=== PATIENT | female | born 1935 | race Caucasian/White ===

== ENCOUNTER 2016-10-07 16:55 | Inpatient (IN) | payer MEDICARE, BC ==
--- NOTE | 2016-10-07 17:23 | Emergency Department Record ---
History of Present Illness - General Chief complaint: Weakness Stated complaint: WEAK Time Seen by Provider: 10/07/16 17:15 Source: Patient, Family, EMS Mode of Arrival: EMS Limitations: No limitations - History of Present Illness Initial comments: 81 yo female presents with weakness for about two weeks since the of her sister. She has been very fatigued, sleepy, less appetite, generally feeling slowed and tired. No headaches. She did get lightheaded today with standing. No vomiting or diarrhea. No chest pain or shortness of breath. No abdominal pain. No swelling or edema. No rash. No speech changes. No focal weakness. No new medications. She did see her doctor recently and was diagnosed with vitamin D deficiency. 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 MD Complaint: Generalized weakness Onset/Timin -: Hour(s) Location: Generalized Consistency: Constant Improves with: None Worsens with: Exertion Context: Depression (sister 2 weeks ago) Associated Symptoms: Denies other symptoms - Jolene Coma Scale Eye Response: (4) Open spontaneously Motor Response: (6) Obeys commands Verbal Response: (5) Oriented Roberts Total: 15 - Related Data Home Medications Medication Instructions Recorded Confirmed Last Taken Atenolol [Tenormin] 25 mg PO DAILY 10/07/16 10/07/16 10/06/16 Atenolol [Tenormin] 50 mg PO DAILY 10/07/16 10/07/16 10/06/16 Digoxin [Lanoxin] 125 mcg PO DAILY 10/07/16 10/07/16 10/06/16 Ergocalciferol (Vitamin D2) 50,000 unit PO WEEKLY 10/07/16 10/07/16 Unknown [Vitamin D2] Furosemide [Lasix] 20 mg PO DAILY 10/07/16 10/07/16 10/06/16 Potassium Chloride [K-Tab ER] 10 meq PO DAILY 10/07/16 10/07/16 10/06/16 Pravastatin Sodium [Pravachol] 10 mg PO DAILY 10/07/16 10/07/16 10/06/16 Allergies Allergy/AdvReac Type Severity Reaction Status Date / Time cephalexin monohydrate Allergy HIVES Verified 10/07/16 17:16 [From Retrace] Travel Screening - Travel/Exposure Within Last 30 Days Have you traveled within the last 30 days?: No - Travel/Exposure Within Last Year Have you traveled outside the [place] in the last year?: No - Additonal Travel Details Have you been exposed to anyone with a communicable illness?: No - Travel Symptoms Symptom Screening: None Review of Systems Constitutional: Reports: Malaise, Weakness. Denies: Chills, Fever, Night sweats , Weight change Eyes: Denies: Eye discharge, Eye pain, Photophobia, Vision change ENT: Denies: Congestion, Epistaxis, Throat pain Respiratory: Denies: Cough, Dyspnea, Hemoptysis, Wheezes Cardiovascular: Denies: Arrhythmia, Chest pain, Dyspnea on exertion, Edema, Palpitations, Syncope Endocrine: Reports: Fatigue. Denies: Heat or cold intolerance, Polydipsia, Polyuria Gastrointestinal: Reports: As per HPI. Denies: Abdominal pain, Diarrhea, Nausea , Vomiting Genitourinary: Denies: Dysuria, Frequency, Hematuria, Urgency Musculoskeletal: Denies: Arthralgia, Back pain, Joint swelling, Myalgia, Neck pain Skin: Denies: Bruising, Change in color, Rash Neurological: Reports: Weakness. Denies: Abnormal gait, Confusion, Headache, Numbness, Paresthesias, Tingling, Tremors, Vertigo Psychiatric: Reports: Depression. Denies: Anxiety Hematological/Lymphatic: Denies: Blood Clots, Easy bleeding, Easy bruising, Swollen glands Past Medical History - SOCIAL HISTORY Smoking Status: Never smoker Alcohol Use: None Drug Use: None - RESPIRATORY Hx Respiratory Disorders: No - CARDIOVASCULAR Hx Cardio Disorders: No - NEURO Hx Neuro Disorders: No - GI Hx GI Disorders: No - Hx Genitourinary Disorders: No - ENDOCRINE Hx Endocrine Disorders: No - MUSCULOSKELETAL Hx Musculoskeletal Disorders: No - PSYCH Hx Psych Problems: No - HEMATOLOGY/ONCOLOGY Hx Hematology/Oncology Disorders: Yes Hx Cancer: Yes (colon) Family Medical History Any Significant Family History?: No Physical Exam - General General Appearance: Alert, Oriented x3, Cooperative, No acute distress Limitations: No limitations, Other (the patient is the primary historian) - Head Head exam: Atraumatic, Normal inspection - Eye Eye exam: Normal appearance, PERRL, EOMI. negative: Conjunctival injection, Periorbital swelling - ENT ENT exam: Normal exam, Mucous membranes moist, Normal external ear exam, Normal orophraynx Ear exam: Normal external inspection. negative: External canal tenderness Nasal Exam: Normal inspection. negative: Discharge, Sinus tenderness Mouth exam: Normal external inspection, Tongue normal Teeth exam: Normal inspection. negative: Dental caries Throat exam: Normal inspection. negative: Tonsillar erythema, Tonsillar exudate - Neck Neck exam: Normal inspection, Full ROM. negative: Lymphadenopathy, Tenderness, Thyromegaly - Respiratory Respiratory exam: Normal lung sounds bilaterally. negative: Respiratory distress - Cardiovascular Cardiovascular Exam: Regular rate, Normal rhythm, Normal heart sounds Peripheral Pulses: 2+: Radial (R), Radial (L) - GI/Abdominal GI/Abdominal exam: Soft - Rectal Rectal exam: Deferred - exam: Deferred - Extremities Extremities exam: Normal inspection, Full ROM, Normal capillary refill. negative: Tenderness - Back Back exam: Reports: Normal inspection, Full ROM. Denies: Muscle spasm, Rash noted, Tenderness - Neurological Neurological exam: Alert, CN II-XII intact, Normal gait, Oriented X3. negative : Altered, Motor sensory deficit - Psychiatric Psychiatric exam: Normal affect, Normal mood. negative: Agitated, Anxious, Depressed - Skin Skin exam: Dry, Intact, Normal color, Warm Course Vital Signs 10/07/16 17:08 Temperature 97.7 F Pulse Rate [ 95 H Pulse Ox Probe] Respiratory 18 Rate Blood Pressure 124/64 [Left Arm] Pulse Ox 98 - Reevaluation(s) Reevaluation #1: No acute findings on the HCT scan CBC is unremarkable. No acute changes EKG NSR, rate 87, intervals normal, axis leftward, ST no acute changes 10/07/16 18:16 Reevaluation #2: BUn and CR elevated at 31 and 1.3 likely dehydration as she has not been eating or drinking normally since her sisters . 10/07/16 18:31 Medical Decision Making - Lab Data Result diagrams: 10/07/16 17:30 10/08/16 06:45 Disposition Clinical Impression: Dehydration, UTI (urinary tract infection), Generalized weakness Disposition: Still a Patient at [facility] Condition: (1) Good
[2016-10-07] MEDS ORDERED: 0.9 % SODIUM CHLORIDE 1,000 ML BAG IV ONE ×2 (17:24→18:32)
[2016-10-07 17:36] LABS: BASO % 0.1 % (0-6); EOS % 0.6 % (0-6); GRAN % 73.3 % (47-80); HEMATOCRIT 38.2 % (35.0-47.0); HEMOGLOBIN 12.1 gm/dl (11.6-16.0); LYMPH % 12.9 % (16-45); MEAN CELL VOLUME 94.6 fl (81-97); MEAN CORPUSCULAR HGB CONC 31.7 g/dl (32-36); MEAN PLATELET VOLUME 8.9 fl (7.4-10.4); MONO % 13.1 % (0-9); PLATELET COUNT 374 K/uL (130-400); RED BLOOD COUNT 4.04 M/uL (3.80-5.40); RED CELL DISTRIBUTION WIDTH 13.8 % (11.5-14.5)
[2016-10-07 18:22] LABS: CREATININE 1.3 mg/dL (0.52-1.04)
[2016-10-07 18:23] LABS: ALBUMIN 3.8 gm/dL (3.5-5.0); ANION GAP 14.9 (7-16); BILIRUBIN,TOTAL 1.02 mg/dL (0.2-1.3); CARBON DIOXIDE 24.1 mmol/L (22-30); TOTAL PROTEIN 7.8 gm/dL (6.3-8.2)
[2016-10-07 18:58] LABS: URINE APPEARANCE CLOUDY; URINE BILIRUBIN NEGATIVE (NEGATIVE); URINE BLOOD LARGE (NEGATIVE); URINE COLOR YELLOW; URINE GLUCOSE (UA) NEGATIVE (NEGATIVE); URINE KETONE NEGATIVE (NEGATIVE); URINE LEUKOCYTE ESTERASE LARGE (NEGATIVE); URINE NITRITE NEGATIVE (NEGATIVE)
[2016-10-07 19:04] LABS: URINE BACTERIA 1+; URINE EPITHELIAL CELLS 0 - 2 (FEW); URINE RBC >50 (NONE SEEN); URINE WBC >50 (0-2/hpf)
[2016-10-07] MEDS ORDERED: CEFTRIAXONE SODIUM 1 GM in 0.9 % SODIUM CHLORIDE 100ML 100 ML IVPB ONE (19:21)
[2016-10-07 19:55] LABS: THYROID STIMULATING HORMONE 4.4 uIU/ml (0.465-4.68)
--- NOTE | 2016-10-07 21:01 | Emergency Department Record ---
History of Present Illness - General Chief complaint: Weakness Stated complaint: WEAK Time Seen by Provider: 10/07/16 17:15 Source: Patient, Family, EMS Mode of Arrival: EMS Limitations: No limitations, Other (the patient is the primary historian) - History of Present Illness MD Complaint: Generalized weakness Onset/Timin -: Hour(s) Location: Generalized Consistency: Constant Improves with: None Worsens with: Exertion Context: Depression (sister 2 weeks ago) Associated Symptoms: Denies other symptoms - Jolene Coma Scale Eye Response: (4) Open spontaneously Motor Response: (6) Obeys commands Verbal Response: (5) Oriented Jolene Total: 15 - Related Data Home Medications Medication Instructions Recorded Confirmed Last Taken Atenolol [Tenormin] 25 mg PO DAILY 10/07/16 10/07/16 10/06/16 Atenolol [Tenormin] 50 mg PO DAILY 10/07/16 10/07/16 10/06/16 Digoxin [Lanoxin] 125 mcg PO DAILY 10/07/16 10/07/16 10/06/16 Ergocalciferol (Vitamin D2) 50,000 unit PO WEEKLY 10/07/16 10/07/16 Unknown [Vitamin D2] Furosemide [Lasix] 20 mg PO DAILY 10/07/16 10/07/16 10/06/16 Potassium Chloride [K-Tab ER] 10 meq PO DAILY 10/07/16 10/07/16 10/06/16 Pravastatin Sodium [Pravachol] 10 mg PO DAILY 10/07/16 10/07/16 10/06/16 Allergies Allergy/AdvReac Type Severity Reaction Status Date / Time cephalexin monohydrate Allergy HIVES Verified 10/07/16 17:16 [From Keflex] Travel Screening - Travel/Exposure Within Last 30 Days Have you traveled within the last 30 days?: No - Travel/Exposure Within Last Year Have you traveled outside the [place] in the last year?: No - Additonal Travel Details Have you been exposed to anyone with a communicable illness?: No - Travel Symptoms Symptom Screening: None Review of Systems Constitutional: Reports: Malaise, Weakness. Denies: Chills, Fever, Night sweats , Weight change Eyes: Denies: Eye discharge, Eye pain, Photophobia, Vision change ENT: Denies: Congestion, Epistaxis, Throat pain Respiratory: Denies: Cough, Dyspnea, Hemoptysis, Wheezes Cardiovascular: Denies: Arrhythmia, Chest pain, Dyspnea on exertion, Edema, Palpitations, Syncope Endocrine: Reports: Fatigue. Denies: Heat or cold intolerance, Polydipsia, Polyuria Gastrointestinal: Reports: As per HPI. Denies: Abdominal pain, Diarrhea, Nausea , Vomiting Genitourinary: Denies: Dysuria, Frequency, Hematuria, Urgency Musculoskeletal: Denies: Arthralgia, Back pain, Joint swelling, Myalgia, Neck pain Skin: Denies: Bruising, Change in color, Rash Neurological: Reports: Weakness. Denies: Abnormal gait, Confusion, Headache, Numbness, Paresthesias, Tingling, Tremors, Vertigo Psychiatric: Reports: Depression. Denies: Anxiety Hematological/Lymphatic: Denies: Blood Clots, Easy bleeding, Easy bruising, Swollen glands Past Medical History - SOCIAL HISTORY Smoking Status: Never smoker Alcohol Use: None Drug Use: None - RESPIRATORY Hx Respiratory Disorders: No - CARDIOVASCULAR Hx Cardio Disorders: No - NEURO Hx Neuro Disorders: No - GI Hx GI Disorders: No - Hx Genitourinary Disorders: No - ENDOCRINE Hx Endocrine Disorders: No - MUSCULOSKELETAL Hx Musculoskeletal Disorders: No - PSYCH Hx Psych Problems: No - HEMATOLOGY/ONCOLOGY Hx Hematology/Oncology Disorders: Yes Hx Cancer: Yes (colon) Family Medical History Any Significant Family History?: No Physical Exam - General Limitations: No limitations, Other (the patient is the primary historian) Course Vital Signs 10/07/16 10/07/16 17:08 18:15 Temperature 97.7 F Pulse Rate [ 95 H 89 Pulse Ox Probe] Respiratory 18 16 Rate Blood Pressure 124/64 120/51 [Left Arm] Pulse Ox 98 98 - Reevaluation(s) Reevaluation #1: 10/07/16 20:58 UA reviewed and appears c/w UTI. Rocephin ordered and has infused, attempted ambulation trial and patient ambulated with assist to the bathroom from Room # 4. Patient and daughter however are not comfortable with the patient going home at this time, will admit for observation, IVFs, and antibiotics with consultation for PT/OT evaluation in the morning. Case was discussed with Admitting PA (Marilee), will accept admission at this time. Medical Decision Making - Lab Data Result diagrams: 10/07/16 17:30 10/07/16 17:30 Lab Results 10/07/16 10/07/16 10/07/16 Range/Units 17:30 17:30 17:30 WBC 9.0 (4.2-12.2) K/uL RBC 4.04 (3.80-5.40) M/uL Hgb 12.1 (11.6-16.0) gm/dl Hct 38.2 (35.0-47.0) % MCV 94.6 (81-97) fl MCH 30.0 (27-33) pg MCHC 31.7 L (32-36) g/dl RDW 13.8 (11.5-14.5) % Plt Count 374 (130-400) K/uL MPV 8.9 (7.4-10.4) fl Gran % 73.3 (47-80) % Lymphocytes % 12.9 L (16-45) % Monocytes % 13.1 H (0-9) % Eosinophils % 0.6 (0-6) % Basophils % 0.1 (0-6) % Sodium 135 L (136-145) mmol/L Potassium 3.9 (3.5-5.1) mmol/L Chloride 96 L (98-107) mmol/L Carbon Dioxide 24.1 (22-30) mmol/L Anion Gap 14.9 (7-16) BUN 31 H (7-17) mg/dL Creatinine 1.3 H (0.52-1.04) mg/dL Estimated GFR 42 ml/min Random Glucose 129 H (70-110) mg/dL Calcium 8.7 (8.5-10.1) mg/dL Total Bilirubin 1.02 (0.2-1.3) mg/dL AST 98 H (14-36) U/L ALT 45 (9-52) U/L Alkaline Phosphatase 147 H (38-126) U/L Total Protein 7.8 (6.3-8.2) gm/dL Albumin 3.8 (3.5-5.0) gm/dL Globulin 4.0 (1.4-4.8) gm/dL Albumin/Globulin Ratio 1.0 L (1.1-1.8) TSH 4.40 (0.465-4.68) uIU/ml Urine Color Urine Appearance Urine pH (5.0-8.0) Ur Specific [place] (1.002-1.030) Urine Protein (NEGATIVE) Urine Glucose (UA) (NEGATIVE) Urine Ketones (NEGATIVE) Urine Blood (NEGATIVE) Urine Nitrite (NEGATIVE) Urine Bilirubin (NEGATIVE) Urine Urobilinogen (0.20 - 1.00) E.U./dL Ur Leukocyte Esterase (NEGATIVE) Urine RBC (NONE SEEN) Urine WBC (0-2/hpf) Ur Epithelial Cells (FEW) Urine Bacteria Digoxin < 0.40 L (0.9-2.0) ng/mL 10/07/16 Range/Units 19:00 WBC (4.2-12.2) K/uL RBC (3.80-5.40) M/uL Hgb (11.6-16.0) gm/dl Hct (35.0-47.0) % MCV (81-97) fl MCH (27-33) pg MCHC (32-36) g/dl RDW (11.5-14.5) % Plt Count (130-400) K/uL MPV (7.4-10.4) fl Gran % (47-80) % Lymphocytes % (16-45) % Monocytes % (0-9) % Eosinophils % (0-6) % Basophils % (0-6) % Sodium (136-145) mmol/L Potassium (3.5-5.1) mmol/L Chloride (98-107) mmol/L Carbon Dioxide (22-30) mmol/L Anion Gap (7-16) BUN (7-17) mg/dL Creatinine (0.52-1.04) mg/dL Estimated GFR ml/min Random Glucose (70-110) mg/dL Calcium (8.5-10.1) mg/dL Total Bilirubin (0.2-1.3) mg/dL AST (14-36) U/L ALT (9-52) U/L Alkaline Phosphatase (38-126) U/L Total Protein (6.3-8.2) gm/dL Albumin (3.5-5.0) gm/dL Globulin (1.4-4.8) gm/dL Albumin/Globulin Ratio (1.1-1.8) TSH (0.465-4.68) uIU/ml Urine Color Yellow Urine Appearance Cloudy Urine pH 5.5 (5.0-8.0) Ur Specific [place] 1.015 (1.002-1.030) Urine Protein 30 mg/dl H (NEGATIVE) Urine Glucose (UA) Negative (NEGATIVE) Urine Ketones Negative (NEGATIVE) Urine Blood Large H (NEGATIVE) Urine Nitrite Negative (NEGATIVE) Urine Bilirubin Negative (NEGATIVE) Urine Urobilinogen 1.0 (0.20 - 1.00) E.U./dL Ur Leukocyte Esterase Large H (NEGATIVE) Urine RBC >50 (NONE SEEN) Urine WBC >50 (0-2/hpf) Ur Epithelial Cells 0 - 2 (FEW) Urine Bacteria 1+ Digoxin (0.9-2.0) ng/mL Disposition Disposition: Admit Clinical Impression: Dehydration, Weakness Urinary Tract Infection Qualifiers: Urinary tract infection type: acute cystitis Hematuria presence: without hematuria Qualified Code(s): N30.00 - Acute cystitis without hematuria Disposition: Still a Patient at [facility] Decision to Admit: Admit from ER Decision to Admit Date: 10/07/16 Decision to Admit Time: 21:01 Condition: (2) Stable Instructions: Dehydration (ED) Additional Instructions: You must stay well hydrated over the next few days Return if worse, fever, vomiting, not eating or drinking You will need to call your doctor this week Forms: Patient Portal Access Time of Disposition: 21:01
[2016-10-07] MEDS ORDERED: LEVOFLOXACIN/D5W 750 MG in DEXTROSE 1 BAG IVPB ONE (21:07)
[2016-10-07] MEDS ORDERED: 0.9 % SODIUM CHLORIDE 1000ML 1,000 ML IV PRN (22:20)
[2016-10-07] MEDS ORDERED: ACETAMINOPHEN 500 MG TABLET PO PRN (22:20)
[2016-10-08 07:19] LABS: ALB/GLOB RATIO 0.9 (1.1-1.8); ALBUMIN 3.4 gm/dL (3.5-5.0); BILIRUBIN,TOTAL 0.91 mg/dL (0.2-1.3); TOTAL PROTEIN 7.1 gm/dL (6.3-8.2)
--- NOTE | 2016-10-08 07:31 | CT SCAN REPORT ---
EXAM: CT OF THE BRAIN HISTORY: DIZZINESS. TECHNIQUE: CT of the brain without contrast was obtained. Comparison: Prior CT of the brain from 01/16/11. FINDINGS: The globes are intact. The paranasal sinuses and mastoid air cells are unremarkable. No displaced or depressed skull fracture. No intra or extraaxial hemorrhage. CT is limited for evaluation of acute infarct. No CT evidence for large or territorial acute infarct. No mass or midline shift. Age appropriate atrophy with small vessel ischemic change. IMPRESSION: ATROPHY. SMALL VESSEL ISCHEMIC CHANGE. JOB NUMBER: [id number] [facility]
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
--- NOTE | 2016-10-08 09:29 | Rehab Evaluation ---
Patient Information - Patient Information Diagnosis: Dehydration, generalized weakness Ordered Treatment: PT Evaluate and Treat Status: Initial Evaluation History: Detail (The patient presented into ED with complaints of weakness for aprox. 2 weeks. The patient was admitted onto inpatient floor.) Past Medical/Surgical Hx: PAST MEDICAL/SURGICAL HISTORY Past Surgical History removal of colon ca PMH - Respiratory Hx Respiratory Disorders No Comment: PATIENT IS POOR HISTORIAN PMH - Cardiovascular Hx Cardiovascular Disorders No Hx Irregular Heartbeat Yes: patient reports this was in the distant past Comment: PATIENT IS POOR HISTORIAN PMH - Neuro Hx Neurological Disorders No Comment: PATIENT IS POOR HISTORIAN PMH - GI Hx Gastrointestinal Disorders No Comment: PATIENT IS POOR HISTORIAN PMH - Hx Genitourinary Disorders No Patient Comment: PATIENT IS POOR HISTORIAN PMH - Endocrine Hx Endocrine Disorders No Comment: PATIENT IS POOR HISTORIAN PMH - Musculoskeletal Hx Musculoskeletal Disorders No Comment: PATIENT IS POOR HISTORIAN PMH - Psych Hx Psychiatric Problems No Hx Depression Yes: since of sister 2 weeks ago Comment: PATIENT IS POOR HISTORIAN PMH - Hematology/Oncology Hx Hematology/Oncology Yes Disorders Hx Cancer Yes: colon Hx Radiation Therapy Yes Comment: PATIENT IS POOR HISTORIAN Premorbid Status: Detail (Prior to admission the patient was independent with ambulation without device, however she did use a standard cane at times.) Social History: Detail (The patient lives in a one story home with a basement with . The patient's home has a ramp at the enterance and a bathroom with a walkin in shower without a chair. The patient's home has an elevated toilet with grab bars.) Precautions: [place], Fall - Time With Patient Total Time Spent With Patient (Min): 30 Treatment Procedures: Detail (PT Initial Evaluation) Subjective Information - Subjective Information Per Patient (The patient had no complaints of pain but did complain of feeling weak.) Objective Data - Mental Status Patient Orientation: Person, Place, Time (The patient identified her birthday but not age and did not know month and year.) - Visual Perception Appears within normal limits for therapeutic activities - ROM Within normal limits (The patient's LE AROM is WNL. Refer to OT evaluation for UE ROM.) - Strength/Tone Not within normal limits (The patient's hip flexors were 4/5, hip abductors, adductors 4+/5, Quads 4+/5, hamstrings 4/5, ankle musculature 4+/5. Refer to OT note for UE strength grades.) - Bed Mobility Independent (The patient was independent with supine to and from sit transfer.) - Transfers Independent (The patient was independent with sit to and from stand transfer) - Balance Balance Sitting: Good Balance Standing: Fair (The patient's balance using the Tinetti Assessment Tool is 19/28 which is in the moderate for risk for falling category.) - Gait Detail (The patient ambulated 5 feet with CG of 2 without device. Ambulating without device the patient exhibited increased postural sway. The patient ambulated with wheeled walker with Cg/supervision for safety a distance of 65 feet x 1.) Therapy Assessment - Therapy Assessment Detail (The patient exhibits decreased balance, LE weakness, and unsteadiness with gait. Recommend use of wheeled walker for ambulation. Feel the patient would benefit from inpatient rehab to return to previous functional level. Recommend ongoing home health Rehab upon discharge from [facility].) Problem List - Problem List Physical Therapy Problem List: Detail (1) Instability with ambulation 2) Decreased LE strength 3) Decreased Balance as measured by the Tinetti Assessment Tool 4) Decreased ability to complete sustained physical activity) Goals - Goals Physical Therapy Goals: 1) The patient will be independent with ambulation with assistive device household and community distances. 2) Increase LE strength 1/3 muscle grade in weakened muscles to increase stability of gait. 3) Improve balance 3 to 4 points on the Tinetti Asessment Tool. 4) The patient will tolerate 30 minutes of physical activity with one to two period. Prognosis - Prognosis Good Plan - Plan Physical Therapy Plan: PT once daily for gait training, transfer training, LE strengthening and balance exercises. Ongoing PT is recommended upon discharge from hospital and wheeled walker.
--- NOTE | 2016-10-08 09:35 | Rehab Evaluation ---
Patient Information - Patient Information Diagnosis: Dehydration, generalized weakness, UTI Ordered Treatment: OT Evaluate and Treat Status: Initial Evaluation Surgery: No History: Detail (The patient presented into ED with complaints of weakness for approx. 2 weeks. The patient was admitted onto inpatient floor.) Past Medical/Surgical Hx: PAST MEDICAL/SURGICAL HISTORY Past Surgical History removal of colon ca PMH - Respiratory Hx Respiratory Disorders No Comment: PATIENT IS POOR HISTORIAN PMH - Cardiovascular Hx Cardiovascular Disorders No Hx Irregular Heartbeat Yes: patient reports this was in the distant past Comment: PATIENT IS POOR HISTORIAN PMH - Neuro Hx Neurological Disorders No Comment: PATIENT IS POOR HISTORIAN PMH - GI Hx Gastrointestinal Disorders No Comment: PATIENT IS POOR HISTORIAN PMH - Hx Genitourinary Disorders No Patient Comment: PATIENT IS POOR HISTORIAN PMH - Endocrine Hx Endocrine Disorders No Comment: PATIENT IS POOR HISTORIAN PMH - Musculoskeletal Hx Musculoskeletal Disorders No Comment: PATIENT IS POOR HISTORIAN PMH - Psych Hx Psychiatric Problems No Hx Depression Yes: since of sister 2 weeks ago Comment: PATIENT IS POOR HISTORIAN PMH - Hematology/Oncology Hx Hematology/Oncology Yes Disorders Hx Cancer Yes: colon Hx Radiation Therapy Yes Comment: PATIENT IS POOR HISTORIAN Premorbid Status: Detail (Prior to admission the patient was independent with ambulation without device, however she did use a standard cane at times.) Social History: Detail (The patient lives with spouse in a one story home with a basement. She generally stays on the first floor. She has a ramp at the entrance. She has a walk-in shower with a grab bar and normally stands to shower. She has an elevated toilet. Prior to admission she was Ind with all ADLs, and IADLs including driving. She was not responsible for yard work.) Precautions: [place], Fall - Time With Patient Total Time Spent With Patient (Min): 30 Treatment Procedures: Detail (OT eval low complexity) Subjective Information - Subjective Information Per Patient Objective Data - Pain Pain Present: No - Mental Status Patient Orientation: Person, Place (Pt oriented to [facility], states age as 80, unsure of month and states year as "2015".) - Visual Perception Appears within normal limits for therapeutic activities (Pt reports she wears glasses most of the time.) - ROM Within normal limits (Les UE AROM WNL.) - Strength/Tone Within normal limits (Les UE MMT 4+/5 throughout.) - Coordination Appears within normal limits for therapeutic activities - Bed Mobility Independent (Ind with sit to supine.) - Transfers Independent - Balance Balance Sitting: Good Balance Standing: Fair - Sensation Intact - Gait Detail (Pt ambulated in hallway with 2 wheeled walker with CG assist. Pt very fatigued after ambulation.) - ADL's/IADL's Detail (Pt reports she is able to toilet with supervision from nursing. She donned briefs with min assist to start over left foot. Additional ADLs not formally assessed at this time.) Therapy Assessment - Therapy Assessment Detail (Pt presents with decreased endurance needed for safe and Ind ADLs and functional mobility.) Problem List - Problem List Occupational Therapy Problem List: Detail (1. Decreased Ind with self care activities. 2. Decreased endurance needed for safe and Ind showering/dressing. ) Goals - Goals Occupational Therapy Goals: 1. Pt will be Ind with showering. 2. Pt will be Ind with total body dressing. 3. Pt will demonstrate improved endurance needed for safe and Ind self cares. Prognosis - Prognosis Good Plan - Plan Occupational Therapy Plan: OT 1-4 times weekly to address self cares, functional mobility, endurance and safety to allow safe and Ind return home.
[2016-10-08] MEDS ORDERED: DOXYCYCLINE HYCLATE 100 MG CAPSULE PO SCH (10:00)
[2016-10-08] MEDS: DIGOXIN 125 MCG TABLET PO SCH (11:01)
[2016-10-08] MEDS: FUROSEMIDE 20 MG TABLET PO SCH (11:01)
[2016-10-08] MEDS: POTASSIUM CHLORIDE 10 MEQ TAB PO SCH (11:01)
[2016-10-08] MEDS: ENOXAPARIN 40 MG/0.4 ML SYR SQ SCH (11:02)
[2016-10-08] MEDS: ATENOLOL 25 MG TABLET PO SCH (11:02)
[2016-10-08] MEDS: ATENOLOL 50 MG TABLET PO SCH (11:02)
[2016-10-08] MEDS: CEFTRIAXONE SODIUM 2 GM in 0.9 % SODIUM CHLORIDE 100ML 100 ML IVPB SCH (11:02)
[2016-10-08] MEDS ORDERED: ZINC OXIDE 28.35 GM TUBE TOP PRN (11:43)
[2016-10-08] MEDS: SIMVASTATIN 5 MG TABLET PO SCH (21:57)
--- NOTE | 2016-10-09 07:09 | RADIOLOGY REPORT ---
EXAM: CHEST, TWO VIEWS HISTORY: WEAKNESS. TECHNIQUE: Frontal and lateral views of the chest were obtained. Comparison: None. FINDINGS: Cardiomegaly with atheromatous change of the thoracic aorta. Osteopenia. The lungs are clear. No pneumothorax. IMPRESSION: CARDIOMEGALY. NO ACUTE CARDIOPULMONARY PROCESS. JOB NUMBER: [id number] MTDD
--- NOTE | 2016-10-09 07:24 | Physician Progress Note ---
Subjective - Date Date of Physician Progress Note: 10/09/16 - Subjective Subjective Comment: Patient states she is feeling better today. She has been up with PT/OT today and has had significant improvement in her strength. Was able to shower with OT. Has needed minimal assistance from nursing to ambulate to the bathroom. Has been tolerating clear liquids and appetite has improved somewhat but not back to normal. Patient's son states she seems closer to her baseline today. she is oriented x3 today. she denies chest pain, abdominal pain, nausea, headache, or diarrhea. Objective - Vital Signs Vital Signs: Vital Signs - Last 24 Hrs Temp Pulse Resp BP Pulse Ox 10/08/16 21:00 83 16 10/08/16 17:00 97.6 F 91 H 16 92/57 98 - General General Appearance: Alert, Oriented x3, Cooperative, No acute distress Limitations: No limitations, Other (the patient is the primary historian) - Head Head exam: Atraumatic, Normal inspection Head exam detail: negative: Abrasion, Contusion - Eye Eye exam: Normal appearance, PERRL, EOMI. negative: Conjunctival injection, Periorbital swelling - ENT ENT exam: Normal exam, Mucous membranes moist, Normal external ear exam, Normal orophraynx Ear exam: Normal external inspection. negative: External canal tenderness Nasal Exam: Normal inspection. negative: Discharge, Sinus tenderness Mouth exam: Normal external inspection, Tongue normal Teeth exam: Normal inspection. negative: Dental caries Throat exam: Normal inspection. negative: Tonsillar erythema, Tonsillar exudate - Neck Neck exam: Normal inspection, Full ROM. negative: Lymphadenopathy, Tenderness, Thyromegaly - Respiratory Respiratory exam: Normal lung sounds bilaterally. negative: Respiratory distress - Cardiovascular Cardiovascular Exam: Regular rate, Normal rhythm, Normal heart sounds Peripheral Pulses: 2+: Radial (R), Radial (L), Dorsalis Pedis (R), Dorsalis Pedis (L) - GI/Abdominal GI/Abdominal exam: Soft, Normal bowel sounds. negative: Tenderness - Rectal Rectal exam: Deferred - exam: Deferred - Extremities Extremities exam: Normal inspection, Full ROM, Normal capillary refill. negative: Tenderness - Back Back exam: Reports: Normal inspection (several areas of small sebacious gland plugging), Full ROM. Denies: Muscle spasm, Rash noted, Tenderness - Neurological Neurological exam: Alert, CN II-XII intact. negative: Altered, Motor sensory deficit - Psychiatric Psychiatric exam: Normal affect, Normal mood. negative: Agitated, Anxious, Depressed - Skin Skin exam: Dry, Intact, Normal color, Rash (poor hygeine related dermatitis caroline area), Warm Type of lesion: Other (approx .5 x .5cm area of circular erythema where tick was removed behind left ear) Assessment and Plan - Assessment and Plan (1) Generalized weakness Current Visit: Yes Status: Acute Base Code: R53.1 - WEAKNESS Comment: 10/09/16- Improved. UTI is most likely cause of acute weakness with significant improvement with antibiotics. Lyme's antibody titers still pending. urine culture still pending. - continue IV rescuscitation - continue Rocephin 2gm Q 24 hours -continue PT/OT daily. If continues to progress will be candidate for home therapy in place of [facility] -vitals q8H -repeat labs qam (2) UTI (urinary tract infection) Current Visit: Yes Status: Acute Qualifiers: Urinary tract infection type: acute cystitis Hematuria presence: without hematuria Qualified Code(s): N30.00 - Acute cystitis without hematuria Base Code: N39.0 - URINARY TRACT INFECTION, SITE NOT SPECIFIED Comment: 10/09/16- UA positive for protein, nitrites, blood and leukocytes. Improving clinically with rocephin. culture pending -continue rocephin 2gm IV q24H (3) Dehydration Current Visit: Yes Status: Acute Base Code: E86.0 - DEHYDRATION Comment: 10/09/16- resolving. patient tolerating po fluids. BUN of 23 and Cr of 1.0 today. -continue to encourage po intake -vitals q8H -repeat labs qam (4) Tick bite of ear Current Visit: Yes Status: Acute Base Code: S00.469A - INSECT BITE ( NONVENOMOUS) OF UNSPECIFIED EAR, INIT ENCNTR; W57.XXXA - BIT/STUNG BY NONVENOM INSECT & OTH NONVENOM ARTHROPODS, INIT Comment: 10/09/16- Tick Successfully removed with head and body intact. specimen sent to lab for analysis. Unsure of tick imbedded but does have indoor/outdoor cats at home. CRP down from 17 to 9 today. -lyme IgG and IgM pending - Will continue Rocephin 2gm Q 24 hours for Lyme prophylaxis as well as UTI treatment - continue to monitor area behind left ear (5) Full code status Current Visit: Yes Status: Acute Base Code: Z78.9 - OTHER SPECIFIED HEALTH STATUS Comment: 10/09/16- will remain full code during this hospitalization (6) DVT prophylaxis Current Visit: Yes Status: Acute Base Code: [id number] - Comment: 10/09/16-patient high risk with age and restricted mobility -Lovenox 40mg QD for prophylaxis Results - Labs Result Diagrams: 10/07/16 17:30 10/08/16 06:45 DVT/PE Assessment - Risk for VTE Risk for VTE: No Risk Level: Moderate Risk Assessment Date: 10/08/16 Risk Assessment Time: 07:32 VTE Orders Placed or Will Be Placed: Yes - Active Medicaitons Current Medications: Current Medications Acetaminophen (Tylenol 500mg Tab) 1,000 mg PO Q6H PRN PRN Reason: PAIN/TEMP Atenolol (Tenormin) 25 mg PO DAILY [facility] Last Admin: 10/08/16 11:02 Dose: Not Given Atenolol (Tenormin) 50 mg PO DAILY [facility] Last Admin: 10/08/16 11:02 Dose: Not Given Digoxin (Lanoxin) 125 mcg PO DAILY [facility] Last Admin: 10/08/16 11:01 Dose: 125 mcg Enoxaparin Sodium (Lovenox) 40 mg SQ DAILY [facility] Last Admin: 10/08/16 11:02 Dose: 40 mg Furosemide (Lasix) 20 mg PO DAILY [facility] Last Admin: 10/08/16 11:01 Dose: Not Given Sodium Chloride () 1,000 mls @ 15 mls/hr IV .Q24H PRN PRN Reason: LARGE VOLUME IV Ceftriaxone Sodium 2 gm/ (Sodium Chloride) 100 mls @ 200 mls/hr IVPB Q24H [facility] Stop: 10/13/16 10:01 Last Admin: 10/08/16 11:02 Dose: 200 mls/hr Potassium Chloride (Klor-Con) 10 meq PO DAILY [facility] Last Admin: 10/08/16 11:01 Dose: 10 meq Simvastatin (Zocor) 5 mg PO QHS [facility] Last Admin: 10/08/16 21:57 Dose: 5 mg Vitamin D (Vitamin D3) 2,000 unit PO DAILY [facility] Zinc Oxide (Desitin) 28.35 gm TOP BID PRN PRN Reason: RASH Last Admin: 10/08/16 22:00 Dose: 28.35 gm AMI Plan - Labs Result Diagrams: 10/07/16 17:30 10/08/16 06:45
--- NOTE | 2016-10-09 08:39 | Occupational Therapy Tx Note ---
Occupational Therapy Tx Note - Treatment Note Tolerated: Good Total Time Spent With Patient: 45 (ADL) Occupational Therapy Treatment Note: Detail (S: Pt alert and wanting to shower. O: Supine to sit Indly. Amb to shower chair with 2 wheeled walker and SBA. Doffed gown, briefs and slippers Indly. Pt completed showering in sitting and standing with set up and using grab bars for balance, crys with eyes closed. Pt dried self in standing Indly. Donned gown, slippers and briefs in sitting Indly. Pt amb to sink and completed hair care Indly in standing. Amb to chair with walker and SBA. Ind with stand to sit. A: Ind with showering using seat and grab bar for balance. Ind with partial dressing. Pt able to identify balance deficits and modify technique appropriately.) Occupational Therapy Problem List: Detail (1. Decreased Ind with self care activities. 2. Decreased endurance needed for safe and Ind showering/dressing. ) Occupational Therapy Goals: 1. Pt will be Ind with showering. 2. Pt will be Ind with total body dressing. 3. Pt will demonstrate improved endurance needed for safe and Ind self cares. Prognosis: Good Occupational Therapy Plan: OT 1-4 times weekly to address self cares, functional mobility, endurance and safety to allow safe and Ind return home.
[2016-10-09] MEDS ORDERED: LEVOFLOXACIN IVPB SCH (10:00)
[2016-10-09] MEDS ORDERED: DEXTROSE IVPB SCH (10:00)
[2016-10-09] MEDS: CEFTRIAXONE SODIUM 2 GM in 0.9 % SODIUM CHLORIDE 100ML 100 ML IVPB SCH (10:49)
[2016-10-09] MEDS: DIGOXIN 125 MCG TABLET PO SCH (10:51)
[2016-10-09] MEDS: ENOXAPARIN 40 MG/0.4 ML SYR SQ SCH (10:52)
[2016-10-09] MEDS: ATENOLOL 25 MG TABLET PO SCH (10:52)
[2016-10-09] MEDS: FUROSEMIDE 20 MG TABLET PO SCH ×2 (10:52→11:17)
[2016-10-09] MEDS: ATENOLOL 50 MG TABLET PO SCH ×2 (10:52→11:19)
[2016-10-09] MEDS: CHOLECALCIFEROL 1,000 UNIT TABLET PO SCH (10:53)
[2016-10-09] MEDS: POTASSIUM CHLORIDE 10 MEQ TAB PO SCH (10:53)
--- NOTE | 2016-10-09 13:57 | Physical Therapy Tx Note ---
Physical Therapy Tx Note - Treatment Note Tolerated: Good Total Time Spent With Patient: 20 Physical Therapy Tx Note: Detail (The patient was in bed when PT arrived. The patient was fitted for a wheeled walker. The patient ambulated with wheeled walker a distance of 40 feet x 1, then to bathroom. The patient required minimal assist to put on new undergarment. The patient returned to bed and was independent with supine to and from sit. Call light was placed within reach.) Physical Therapy Problem List: Detail (1) Instability with ambulation 2) Decreased LE strength 3) Decreased Balance as measured by the Tinetti Assessment Tool 4) Decreased ability to complete sustained physical activity) Physical Therapy Goals: 1) The patient will be independent with ambulation with assistive device household and community distances. 2) Increase LE strength 1/3 muscle grade in weakened muscles to increase stability of gait. 3) Improve balance 3 to 4 points on the Tinetti Asessment Tool. 4) The patient will tolerate 30 minutes of physical activity with one to two period. Physical Therapy Plan: PT once daily for gait training, transfer training, LE strengthening and balance exercises. Ongoing PT is recommended upon discharge from hospital and wheeled walker.
[2016-10-09] MEDS: SIMVASTATIN 5 MG TABLET PO SCH (23:07)
[2016-10-10 07:14] LABS: BASO % 0.7 % (0-6); GRAN % 65.8 % (47-80); HEMATOCRIT 36.2 % (35.0-47.0); HEMOGLOBIN 11.7 gm/dl (11.6-16.0); LYMPH % 19.4 % (16-45); MEAN CELL VOLUME 95.3 fl (81-97); MEAN CORPUSCULAR HEMOGLOBIN 30.8 pg (27-33); MEAN CORPUSCULAR HGB CONC 32.3 g/dl (32-36); MONO % 12.1 % (0-9); PLATELET COUNT 400 K/uL (130-400); RED CELL DISTRIBUTION WIDTH 13.9 % (11.5-14.5); WHITE BLOOD COUNT W/O DIFF 5.9 K/uL (4.2-12.2)
[2016-10-10 07:15] LABS: ALB/GLOB RATIO 0.9 (1.1-1.8); ALBUMIN 3.2 gm/dL (3.5-5.0); ANION GAP 8.6 (7-16); BILIRUBIN,TOTAL 0.52 mg/dL (0.2-1.3); C-REACTIVE PROTEIN 6.2 mg/dL (0.0-0.9); CARBON DIOXIDE 24.4 mmol/L (22-30); TOTAL PROTEIN 6.6 gm/dL (6.3-8.2)
[2016-10-10] MEDS: POTASSIUM CHLORIDE 10 MEQ TAB PO SCH (09:38)
[2016-10-10] MEDS: CHOLECALCIFEROL 1,000 UNIT TABLET PO SCH (09:38)
[2016-10-10] MEDS: FUROSEMIDE 20 MG TABLET PO SCH (09:38)
[2016-10-10] MEDS: DIGOXIN 125 MCG TABLET PO SCH (09:39)
[2016-10-10] MEDS: CEFTRIAXONE SODIUM 2 GM in 0.9 % SODIUM CHLORIDE 100ML 100 ML IVPB SCH (09:39)
[2016-10-10] MEDS: ENOXAPARIN 40 MG/0.4 ML SYR SQ SCH (09:39)
[2016-10-10] MEDS: ATENOLOL 25 MG TABLET PO SCH ×2 (09:39→13:15)
[2016-10-10] MEDS: ATENOLOL 50 MG TABLET PO SCH (09:40)
--- NOTE | 2016-10-10 13:11 | Discharge Summary ---
Providers Discharge Summary Date: 10/10/16 Date of admission: 10/08/16 11:36 Expected Date of Discharge: 10/10/16 Attending physician: ROGELIO PATRICK Primary care physician: Nan Caldera Physical Exam - Vital Signs Vital Signs: Vital Signs - Last 24 Hrs Temp Pulse Resp BP Pulse Ox 10/10/16 09:00 98.4 F 78 16 102/53 98 10/10/16 00:00 97.9 F 79 16 106/59 98 10/09/16 21:00 80 10/09/16 17:00 97.6 F 80 18 100/56 99 - General General Appearance: Alert, Oriented x3, Cooperative, No acute distress Limitations: No limitations, Other (the patient is the primary historian) - Head Head exam: Atraumatic, Normal inspection Head exam detail: negative: Abrasion, Contusion - Eye Eye exam: Normal appearance, PERRL, EOMI. negative: Conjunctival injection, Periorbital swelling - ENT ENT exam: Normal exam, Mucous membranes moist, Normal external ear exam, Normal orophraynx Ear exam: Normal external inspection. negative: External canal tenderness Nasal Exam: Normal inspection. negative: Discharge, Sinus tenderness Mouth exam: Normal external inspection, Tongue normal Teeth exam: Normal inspection. negative: Dental caries Throat exam: Normal inspection. negative: Tonsillar erythema, Tonsillar exudate - Neck Neck exam: Normal inspection, Full ROM. negative: Lymphadenopathy, Tenderness, Thyromegaly - Respiratory Respiratory exam: Normal lung sounds bilaterally. negative: Respiratory distress - Cardiovascular Cardiovascular Exam: Regular rate, Normal rhythm, Normal heart sounds Peripheral Pulses: 2+: Radial (R), Radial (L), Dorsalis Pedis (R), Dorsalis Pedis (L) - GI/Abdominal GI/Abdominal exam: Soft, Normal bowel sounds. negative: Tenderness - Rectal Rectal exam: Deferred - exam: Deferred - Extremities Extremities exam: Normal inspection, Full ROM, Normal capillary refill. negative: Tenderness - Back Back exam: Reports: Normal inspection (several areas of small sebacious gland plugging), Full ROM. Denies: Muscle spasm, Rash noted, Tenderness - Neurological Neurological exam: Alert, CN II-XII intact. negative: Altered, Motor sensory deficit - Psychiatric Psychiatric exam: Normal affect, Normal mood. negative: Agitated, Anxious, Depressed - Skin Skin exam: Dry, Intact, Normal color, Rash (poor hygeine related dermatitis caroline area), Warm Type of lesion: Other (approx .5 x .5cm area of circular erythema where tick was removed behind left ear) Hospitalization - Hospitalization Admission Diagnosis: Generalized Weakness. UTI. Dehydration - Problem List/Discharge Diagnosis (1) Generalized weakness Current Visit: Yes Status: Acute Base Code: R53.1 - WEAKNESS Comment: 10/10/16- resolved. UTI is most likely cause of acute weakness with significant improvement with antibiotics. Lyme's antibody titers still pending. urine culture still pending. -transition to oral antibiotics -home pt/ot and nursing set up by social work -patient has follow up appointment scheduled tomorrow at 2pm wt Dr. Caldera (2) UTI (urinary tract infection) Current Visit: Yes Status: Acute Discharge Diagnosis: Urinary tract infection type: acute cystitis Hematuria presence: without hematuria Qualified Code(s): N30.00 - Acute cystitis without hematuria Base Code: N39.0 - URINARY TRACT INFECTION, SITE NOT SPECIFIED Comment: 10/10/16- UA positive for protein, nitrites, blood and leukocytes. continues to improve clinically with rocephin. culture pending. CRP down from 17 to 6.2 -transition to cefdinir 300mg po q12h for 8 more days -will have lab forward culture results to pcp -has follow up with Dr. Caldera tomorrow (3) Dehydration Current Visit: Yes Status: Acute Base Code: E86.0 - DEHYDRATION Comment: 10/10/16- resolved. patient continues to tolerate po fluids. BUN of 17 and Cr of 1.0 today. (4) Tick bite of ear Current Visit: Yes Status: Acute Base Code: S00.469A - INSECT BITE ( NONVENOMOUS) OF UNSPECIFIED EAR, INIT ENCNTR; W57.XXXA - BIT/STUNG BY NONVENOM INSECT & OTH NONVENOM ARTHROPODS, INIT Comment: 10/10/16- Tick Successfully removed with head and body intact. specimen sent to lab for analysis and is still pending. Unsure if tick imbedded but does have indoor/outdoor cats at home. CRP down from 17 to 9 today. -lyme IgG and IgM pending -will transition to doxycycline 100mg po q12H for 8 more days for total of 10 day course for possible lyme disease. will have lab forward results of testing to Pcp and may discontinue the doxycycline if no lyme's present. (5) Full code status Current Visit: Yes Status: Acute Base Code: Z78.9 - OTHER SPECIFIED HEALTH STATUS Comment: 10/10/16- will remain full code during this hospitalization (6) DVT prophylaxis Current Visit: Yes Status: Acute Base Code: [id number] - Comment: 10/10/16-patient was high risk with age and restricted mobility -Lovenox 40mg QD for prophylaxis - Hospitalization Course Disposition: Home Health Service Hospital Course: 81 y/o female with CC weakness x 2 weeks admitted for UTI, mild dehydration and weakness. PMX:colon ca PSX: none reported Patient is a poor historian. History given with the assistance of Yovana mcgraw. Prior to arrival patient had been experiencing generalized weakness for about 2 weeks since of sister. Castillo been very fatigued, lethargic, poor appetite. Did have episode of dizziness with standing today without syncope. Denies vomiting or diarrhea, abdominal pain, chest pain, CHAVA or shortness of breath, fever. Denies new medications, changes in speech, focalized weakness or numbness. Was recently diagnosed with vitamin D deficiency- unsure of what the level was. 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 While in ED VSS. CBC was normal, Na 135, BUN 31, Cr 1.3. Responded well to IVF x 2 liters, was up and walked to the bathroom from one side of ED to the other without complaint of dizziness or syncopal episode. Urine + for protein, nitrites, blood and sent for routine culture. Was given Levaquin IVPB in ED. Head CT atrophy, small vessel ischemic changes, no acute process. Admitted to the floor for IV hydration, IV Levaquin and PT/OT eval for weakness. 10/08/16- resting comfortably in bed, denies pain, abdominal pain, dizziness. Does report feels weak and wants to participate in therapy. Nursing noted a tick behind left ear this am. Patient reports she has not been doing any gardening waling in the [place] but does have 2 outdoor/indoor cats. Was unaware she had a tick behind her ear, denies muscle aches or flu-like symptoms outside of current weakness, fatigue, poor appetite. Nursing staff successfully removed tick with head and body intact, sent to lab for further processing. She lives with her who is elderly but does not require physical assist for ADL or care. 10/09/16- Patient states she is feeling better today. She has been up with PT/OT today and has had significant improvement in her strength. Was able to shower with OT. Has needed minimal assistance from nursing to ambulate to the bathroom. Has been tolerating clear liquids and appetite has improved somewhat but not back to normal. Patient's son states she seems closer to her baseline today. she is oriented x3 today. she denies chest pain, abdominal pain, nausea, headache, or diarrhea. 10/10/16- Patient continues to improve. she reports strength and function back to baseline. PT/OT feel she is ambulating well and able to perform ADL's but do recommend home pt/ot to ensure she continues to be independent once home. patient agrees with that plan. Her appetite has improved as well. having normal BM and urine output. No confusion, headache, vision changes, focal weakness, nausea, abdominal pain or diarrhea. Abnormal Labs: Abnormal Lab Results 10/09/16 10/10/16 10/10/16 Range/Units 06:53 06:50 06:50 Monocytes % 12.1 H (0-9) % Calcium (8.5-10.1) mg/dL AST (14-36) U/L C-Reactive Protein 9.0 H (0.0-0.9) mg/dL Albumin (3.5-5.0) gm/dL Albumin/Globulin Ratio (1.1-1.8) Digoxin < 0.40 L (0.9-2.0) ng/mL 10/10/16 Range/Units 06:50 Monocytes % (0-9) % Calcium 8.4 L (8.5-10.1) mg/dL AST 55 H (14-36) U/L C-Reactive Protein 6.2 H (0.0-0.9) mg/dL Albumin 3.2 L (3.5-5.0) gm/dL Albumin/Globulin Ratio 0.9 L (1.1-1.8) Digoxin (0.9-2.0) ng/mL Condition at Discharge: (2) Stable Discharge Medications - Discharge Medications Prescriptions: Cefdinir 300 mg PO Q12H #16 capsule Doxycycline Hyclate [Doxycycline] 100 mg PO Q12H #16 cap Home Medications: Ambulatory Orders Atenolol [Tenormin] 25 mg PO DAILY 10/07/16 [Last Taken 10/06/16] Atenolol [Tenormin] 50 mg PO DAILY 10/07/16 [Last Taken 10/06/16] Digoxin [Lanoxin] 125 mcg PO DAILY 10/07/16 [Last Taken 10/06/16] Ergocalciferol (Vitamin D2) [Vitamin D2] 50,000 unit PO WEEKLY 10/07/16 [Last Taken Unknown] Furosemide [Lasix] 20 mg PO DAILY 10/07/16 [Last Taken 10/06/16] Potassium Chloride [K-Tab ER] 10 meq PO DAILY 10/07/16 [Last Taken 10/06/16] Pravastatin Sodium [Pravachol] 10 mg PO DAILY 10/07/16 [Last Taken 10/06/16] Cefdinir 300 mg PO Q12H #16 capsule 10/10/16 [Last Taken Unknown] Doxycycline Hyclate [Doxycycline] 100 mg PO Q12H #16 cap 10/10/16 [Last Taken Unknown] Discharge Plan - Discharge Instructions Activity at Discharge: As Per Physical Therapy Diet at Discharge: Regular Diet Instructions: Dehydration (ED) Additional Instructions: [facility] for RN, PT, OT, PRINCIPAL SECRETARY [phone]. [facility] will call to set start of care visit, if you do not hear from them by 10/11, please call. You must stay well hydrated over the next few days Return if worse, fever, vomiting, not eating or drinking You will need to schedule with Dr. Caldera within one week Continue the cefdinir 300mg twice daily for 8 more days Continue doxycycline 100mg twice daily for 8 more days or until we have received the lyme's test results which we will forward to Dr. Caldera
== END 2016-10-10 14:00 | disposition home health service (06) | DRG 690 ==
LOC: ER 16:55 → MEDSURG 22:01 → OBSVTOIN 10-08 11:36
PROVIDERS: ADMIT Family Medicine; ATTEND Family Medicine
DX: N39.0 Urinary tract infection, site not specified (principal); E86.0 Dehydration; S00.469A Insect bite (nonvenomous) of unspecified ear, initial encounter; Z78.9 Other specified health status; Z85.038 Personal history of other malignant neoplasm of large intestine; R53.1 Weakness; Z85.01 Personal history of malignant neoplasm of esophagus
CPT/HCPCS: 70450; 71020; 80053; 80162; 81001; 82306; 84443; 85025; 85651; 86140; 93005; 93010; 96365; 96366; 97165; 97530; 97535; 99223; 99233; 99239; 99285; J1650; J1956; J7030

== ENCOUNTER 2017-01-13 16:55 | Inpatient (IN) | payer MEDICARE, BC ==
[2017-01-13] MEDS ORDERED: 0.9 % SODIUM CHLORIDE 1,000 ML BAG IV ONE (17:38)
[2017-01-13] MEDS ORDERED: PROMETHAZINE HCL 25 MG/ML VIAL IVP ONE (17:40)
--- NOTE | 2017-01-13 18:05 | Emergency Department Record ---
History of Present Illness - General Chief complaint: Nausea, Vomiting, Diarrhea Stated complaint: VOMITTING Time Seen by Provider: 01/13/17 17:21 Source: Patient Mode of Arrival: Wheelchair Limitations: No limitations - History of Present Illness Initial comments: pt has been vomiting and feels very weak. MD complaint: Nausea, Vomiting Onset/Timin -: Days(s) Description of Vomiting: Bilious Associated Abdominal Pain: No Severity: Mild Consistency: Constant Improves with: None Worsens with: None Associated Symptoms: Fever/chills, Loss of appetite, Malaise, Nausea/vomiting - Related Data Home Medications Medication Instructions Recorded Confirmed Last Taken Atenolol [Tenormin] 50 mg PO DAILY 10/07/16 01/13/17 10/06/16 Digoxin [Lanoxin] 125 mcg PO DAILY 10/07/16 01/13/17 10/06/16 Ergocalciferol (Vitamin D2) 50,000 unit PO WEEKLY 10/07/16 01/13/17 Unknown [Vitamin D2] Furosemide [Lasix] 20 mg PO DAILY 10/07/16 01/13/17 10/06/16 Potassium Chloride [K-Tab ER] 10 meq PO DAILY 10/07/16 01/13/17 10/06/16 Pravastatin Sodium [Pravachol] 10 mg PO DAILY 10/07/16 01/13/17 10/06/16 Previous Rx's Medication Instructions Recorded Doxycycline Hyclate [Doxycycline] 100 mg PO Q12H #16 cap 10/10/16 Allergies Allergy/AdvReac Type Severity Reaction Status Date / Time cephalexin monohydrate Allergy HIVES Verified 10/07/16 17:16 [From [facility]] Travel Screening - Travel/Exposure Within Last 30 Days Have you traveled within the last 30 days?: No - Travel/Exposure Within Last Year Have you traveled outside the [place] in the last year?: No - Additonal Travel Details Have you been exposed to anyone with a communicable illness?: No Review of Systems Reviewed: No additional complaints except as noted below Constitutional: Reports: As per HPI. Denies: Chills, Fever, Malaise, Night sweats, Weakness, Weight change Eyes: Reports: As per HPI. Denies: Eye discharge, Eye pain, Photophobia, Vision change ENT: Reports: As per HPI. Denies: Congestion, Dental pain, Ear pain, Epistaxis , Hearing loss, Throat pain Respiratory: Reports: As per HPI. Denies: Cough, Dyspnea, Hemoptysis, Stridor, Wheezes Cardiovascular: Reports: As per HPI. Denies: Arrhythmia, Chest pain, Dyspnea on exertion, Edema, Murmurs, Orthopnea, Palpitations, Paroxysmal nocturnal dyspnea, Rheumatic Fever, Syncope Endocrine: Reports: As per HPI. Denies: Fatigue, Heat or cold intolerance, Polydipsia, Polyuria Gastrointestinal: Reports: As per HPI. Denies: Abdominal pain, Constipation, Diarrhea, Hematemesis, Hematochezia, Melena, Nausea, Vomiting Genitourinary: Reports: As per HPI. Denies: Abnormal menses, Discharge, Dyspareunia, Dysuria, Frequency, Hematuria, Incontinence, Retention, Urgency Musculoskeletal: Reports: As per HPI. Denies: Arthralgia, Back pain, Gout, Joint swelling, Myalgia, Neck pain Skin: Reports: As per HPI. Denies: Bruising, Change in color, Change in hair/ nails, Lesions, Pruritus, Rash Neurological: Reports: As per HPI. Denies: Abnormal gait, Confusion, Headache, Numbness, Paresthesias, Seizure, Tingling, Tremors, Vertigo, Weakness Psychiatric: Reports: As per HPI. Denies: Anxiety, Auditory hallucinations, Depression, Homicidal thoughts, Suicidal thoughts, Visual hallucinations Hematological/Lymphatic: Reports: As per HPI. Denies: Anemia, Blood Clots, Easy bleeding, Easy bruising, Swollen glands Past Medical History - SOCIAL HISTORY Smoking Status: Never smoker Alcohol Use: None Drug Use: None - RESPIRATORY Hx Respiratory Disorders: No Comment:: PATIENT IS POOR HISTORIAN - CARDIOVASCULAR Hx Cardio Disorders: No Comment:: PATIENT IS POOR HISTORIAN - NEURO Hx Neuro Disorders: No Comment:: PATIENT IS POOR HISTORIAN - GI Hx GI Disorders: No Comment:: PATIENT IS POOR HISTORIAN - Hx Genitourinary Disorders: No Comment:: PATIENT IS POOR HISTORIAN - ENDOCRINE Hx Endocrine Disorders: No Comment:: PATIENT IS POOR HISTORIAN - MUSCULOSKELETAL Hx Musculoskeletal Disorders: No Comment:: PATIENT IS POOR HISTORIAN - PSYCH Hx Psych Problems: No Comment:: PATIENT IS POOR HISTORIAN - HEMATOLOGY/ONCOLOGY Hx Hematology/Oncology Disorders: Yes Hx Cancer: Yes (colon) Family Medical History Any Significant Family History?: No Physical Exam - General General Appearance: Alert, Oriented x3, Cooperative, Mild distress - Head Head exam: Normal inspection - Eye Eye exam: Normal appearance, PERRL, EOMI Pupils: Normal accommodation - ENT ENT exam: Normal exam, Mucous membranes dry, Normal external ear exam, Normal orophraynx Ear exam: Normal external inspection. negative: External canal tenderness Nasal Exam: Normal inspection. negative: Discharge, Sinus tenderness Mouth exam: Normal external inspection, Tongue normal Teeth exam: Normal inspection. negative: Dental caries Throat exam: Normal inspection. negative: Tonsillar erythema, Tonsillar exudate - Neck Neck exam: Normal inspection, Full ROM. negative: Tenderness - Respiratory Respiratory exam: Normal lung sounds bilaterally. negative: Respiratory distress - Cardiovascular Cardiovascular Exam: Regular rate, Normal rhythm, Normal heart sounds - GI/Abdominal GI/Abdominal exam: Soft, Normal bowel sounds. negative: Tenderness - Rectal Rectal exam: Deferred - exam: Deferred - Extremities Extremities exam: Normal inspection, Full ROM, Normal capillary refill. negative: Tenderness - Back Back exam: Reports: Normal inspection, Full ROM. Denies: Muscle spasm, Rash noted, Tenderness - Neurological Neurological exam: Alert, CN II-XII intact, Normal gait, Oriented X3 - Psychiatric Psychiatric exam: Normal affect, Normal mood - Skin Skin exam: Dry, Intact, Normal color, Warm Course Vital Signs 01/13/17 16:59 Temperature 99.8 F H Pulse Rate 84 Respiratory 20 Rate Blood Pressure 110/58 Pulse Ox 92 L Medical Decision Making - Lab Data Result diagrams: 01/13/17 17:45 01/13/17 17:45 Disposition Disposition: Admit Clinical Impression: Pyelonephritis Disposition: Still a Patient at [facility] Decision to Admit: Admit from ER Decision to Admit Date: 01/13/17 Decision to Admit Time: 19:07 Quality - Quality Measures Quality Measures: N/A - Blood Pressure Screening Blood Pressure Classification: Normal BP Reading Systolic Measurement: 110 Diastolic Measurement: 58 Screening for High Blood Pressure: < Normal BP, F/U Not Required > [G8783] Normal BP Follow-up Interventions: No follow-up required
[2017-01-13 18:09] LABS: BASO % 0.1 % (0-6); HEMATOCRIT 37.4 % (35.0-47.0); HEMOGLOBIN 12.3 gm/dl (11.6-16.0); MEAN CELL VOLUME 97.4 fl (81-97); MEAN CORPUSCULAR HGB CONC 32.9 g/dl (32-36); MONO % 5.4 % (0-9); PLATELET COUNT 260 K/uL (130-400); RED BLOOD COUNT 3.84 M/uL (3.80-5.40); RED CELL DISTRIBUTION WIDTH 14.2 % (11.5-14.5); WHITE BLOOD COUNT W/O DIFF 16.2 K/uL (4.2-12.2)
[2017-01-13 18:23] LABS: ALB/GLOB RATIO 1.3 (1.1-1.8); ALBUMIN 3.9 gm/dL (3.5-5.0); ANION GAP 10.7 (7-16); BILIRUBIN,TOTAL 1.11 mg/dL (0.2-1.3); CARBON DIOXIDE 26.3 mmol/L (22-30); CREATININE 1.1 mg/dL (0.52-1.04)
[2017-01-13] MEDS ORDERED: ACETAMINOPHEN 325 MG TAB PO ONE (18:34)
[2017-01-13 18:43] LABS: URINE APPEARANCE CLOUDY; URINE BILIRUBIN NEGATIVE (NEGATIVE); URINE BLOOD SMALL (NEGATIVE); URINE COLOR YELLOW; URINE GLUCOSE (UA) NEGATIVE (NEGATIVE); URINE KETONE NEGATIVE (NEGATIVE); URINE LEUKOCYTE ESTERASE LARGE (NEGATIVE); URINE NITRITE POSITIVE (NEGATIVE); URINE UROBILINOGEN 0.2 E.U./dL (0.20 - 1.00)
[2017-01-13 18:46] LABS: URINE BACTERIA 1+; URINE RBC 0 - 2 (NONE SEEN); URINE WBC 36 - 50 (0-2/hpf)
[2017-01-13] MEDS ORDERED: CIPROFLOXACIN LACTATE/D5W 400 MG/200 ML BAG IVPB ONE (18:52)
--- NOTE | 2017-01-13 19:18 | Emergency Department Record ---
History of Present Illness - General Chief complaint: Nausea, Vomiting, Diarrhea Stated complaint: VOMITTING Time Seen by Provider: 01/13/17 17:21 Source: Patient Mode of Arrival: Wheelchair Limitations: No limitations - History of Present Illness MD complaint: Nausea, Vomiting Onset/Timin -: Days(s) Description of Vomiting: Bilious Associated Abdominal Pain: No Severity: Mild Consistency: Constant Improves with: None Worsens with: None Associated Symptoms: Fever/chills, Loss of appetite, Malaise, Nausea/vomiting - Related Data Home Medications Medication Instructions Recorded Confirmed Last Taken Atenolol [Tenormin] 50 mg PO DAILY 10/07/16 01/13/17 10/06/16 Digoxin [Lanoxin] 125 mcg PO DAILY 10/07/16 01/13/17 10/06/16 Ergocalciferol (Vitamin D2) 50,000 unit PO WEEKLY 10/07/16 01/13/17 Unknown [Vitamin D2] Furosemide [Lasix] 20 mg PO DAILY 10/07/16 01/13/17 10/06/16 Potassium Chloride [K-Tab ER] 10 meq PO DAILY 10/07/16 01/13/17 10/06/16 Pravastatin Sodium [Pravachol] 10 mg PO DAILY 10/07/16 01/13/17 10/06/16 Previous Rx's Medication Instructions Recorded Doxycycline Hyclate [Doxycycline] 100 mg PO Q12H #16 cap 10/10/16 Allergies Allergy/AdvReac Type Severity Reaction Status Date / Time cephalexin monohydrate Allergy HIVES Verified 10/07/16 17:16 [From [facility] [place]] Travel Screening - Travel/Exposure Within Last 30 Days Have you traveled within the last 30 days?: No - Travel/Exposure Within Last Year Have you traveled outside the [place] in the last year?: No - Additonal Travel Details Have you been exposed to anyone with a communicable illness?: No Review of Systems Constitutional: Reports: As per HPI. Denies: Chills, Fever, Malaise, Night sweats, Weakness, Weight change Eyes: Reports: As per HPI. Denies: Eye discharge, Eye pain, Photophobia, Vision change ENT: Reports: As per HPI. Denies: Congestion, Dental pain, Ear pain, Epistaxis , Hearing loss, Throat pain Respiratory: Reports: As per HPI. Denies: Cough, Dyspnea, Hemoptysis, Stridor, Wheezes Cardiovascular: Reports: As per HPI. Denies: Arrhythmia, Chest pain, Dyspnea on exertion, Edema, Murmurs, Orthopnea, Palpitations, Paroxysmal nocturnal dyspnea, Rheumatic Fever, Syncope Endocrine: Reports: As per HPI. Denies: Fatigue, Heat or cold intolerance, Polydipsia, Polyuria Gastrointestinal: Reports: As per HPI. Denies: Abdominal pain, Constipation, Diarrhea, Hematemesis, Hematochezia, Melena, Nausea, Vomiting Genitourinary: Reports: As per HPI. Denies: Abnormal menses, Discharge, Dyspareunia, Dysuria, Frequency, Hematuria, Incontinence, Retention, Urgency Musculoskeletal: Reports: As per HPI. Denies: Arthralgia, Back pain, Gout, Joint swelling, Myalgia, Neck pain Skin: Reports: As per HPI. Denies: Bruising, Change in color, Change in hair/ nails, Lesions, Pruritus, Rash Neurological: Reports: As per HPI. Denies: Abnormal gait, Confusion, Headache, Numbness, Paresthesias, Seizure, Tingling, Tremors, Vertigo, Weakness Psychiatric: Reports: As per HPI. Denies: Anxiety, Auditory hallucinations, Depression, Homicidal thoughts, Suicidal thoughts, Visual hallucinations Hematological/Lymphatic: Reports: As per HPI. Denies: Anemia, Blood Clots, Easy bleeding, Easy bruising, Swollen glands Past Medical History - SOCIAL HISTORY Smoking Status: Never smoker Alcohol Use: None Drug Use: None - RESPIRATORY Hx Respiratory Disorders: No Comment:: PATIENT IS POOR HISTORIAN - CARDIOVASCULAR Hx Cardio Disorders: No Comment:: PATIENT IS POOR HISTORIAN - NEURO Hx Neuro Disorders: No Comment:: PATIENT IS POOR HISTORIAN - GI Hx GI Disorders: No Comment:: PATIENT IS POOR HISTORIAN - Hx Genitourinary Disorders: No Comment:: PATIENT IS POOR HISTORIAN - ENDOCRINE Hx Endocrine Disorders: No Comment:: PATIENT IS POOR HISTORIAN - MUSCULOSKELETAL Hx Musculoskeletal Disorders: No Comment:: PATIENT IS POOR HISTORIAN - PSYCH Hx Psych Problems: No Comment:: PATIENT IS POOR HISTORIAN - HEMATOLOGY/ONCOLOGY Hx Hematology/Oncology Disorders: Yes Hx Cancer: Yes (colon) Family Medical History Any Significant Family History?: No Physical Exam - General Limitations: No limitations Course Vital Signs 01/13/17 16:59 Temperature 99.8 F H Pulse Rate 84 Respiratory 20 Rate Blood Pressure 110/58 Pulse Ox 92 L Medical Decision Making - Lab Data Result diagrams: 01/13/17 17:45 01/13/17 17:45 Lab Results 01/13/17 01/13/17 01/13/17 Range/Units 17:45 17:45 18:43 WBC 16.2 H (4.2-12.2) K/uL RBC 3.84 (3.80-5.40) M/uL Hgb 12.3 (11.6-16.0) gm/dl Hct 37.4 (35.0-47.0) % MCV 97.4 H (81-97) fl MCH 32.0 (27-33) pg MCHC 32.9 (32-36) g/dl RDW 14.2 (11.5-14.5) % Plt Count 260 (130-400) K/uL MPV 10.0 (7.4-10.4) fl Lymphocytes % 4.0 L (16-45) % Monocytes % 5.4 (0-9) % Eosinophils % 0.0 (0-6) % Basophils % 0.1 (0-6) % Sodium 137 (136-145) mmol/L Potassium 4.3 (3.5-5.1) mmol/L Chloride 100 (98-107) mmol/L Carbon Dioxide 26.3 (22-30) mmol/L Anion Gap 10.7 (7-16) BUN 21 H (7-17) mg/dL Creatinine 1.1 H (0.52-1.04) mg/dL Estimated GFR 51 ml/min Random Glucose 126 H (70-110) mg/dL Calcium 8.8 (8.5-10.1) mg/dL Total Bilirubin 1.11 (0.2-1.3) mg/dL AST 30 (14-36) U/L ALT 37 (9-52) U/L Alkaline Phosphatase 81 (38-126) U/L Total Protein 7.0 (6.3-8.2) gm/dL Albumin 3.9 (3.5-5.0) gm/dL Globulin 3.1 (1.4-4.8) gm/dL Albumin/Globulin Ratio 1.3 (1.1-1.8) Lipase 38 (23-300) U/L Urine Color Yellow Urine Appearance Cloudy Urine pH 6.5 (5.0-8.0) Ur Specific [place] 1.025 (1.002-1.030) Urine Protein 100 mg/dl H (NEGATIVE) Urine Glucose (UA) Negative (NEGATIVE) Urine Ketones Negative (NEGATIVE) Urine Blood Small H (NEGATIVE) Urine Nitrite Positive H (NEGATIVE) Urine Bilirubin Negative (NEGATIVE) Urine Urobilinogen 0.2 (0.20 - 1.00) E.U./dL Ur Leukocyte Esterase Large H (NEGATIVE) Urine RBC 0 - 2 (NONE SEEN) Urine WBC 36 - 50 (0-2/hpf) Ur Epithelial Cells 3 - 6 (FEW) Urine Bacteria 1+ Disposition Disposition: Admit Clinical Impression: Pyelonephritis Pneumonia Qualifiers: Pneumonia type: due to unspecified organism Laterality: left Lung location: lower lobe of lung Qualified Code(s): J18.1 - Lobar pneumonia, unspecified organism Disposition: Still a Patient at [facility] Decision to Admit: Admit from ER Decision to Admit Date: 01/13/17 Decision to Admit Time: 19:18 Forms: Patient Portal Access Quality - Quality Measures Quality Measures: N/A - Blood Pressure Screening Blood Pressure Classification: Normal BP Reading Systolic Measurement: 110 Diastolic Measurement: 58 Screening for High Blood Pressure: < Normal BP, F/U Not Required > [G8783] Normal BP Follow-up Interventions: No follow-up required
[2017-01-13] MEDS ORDERED: 0.9 % SODIUM CHLORIDE 1000ML 1,000 ML IV PRN (20:02)
[2017-01-13] MEDS ORDERED: PROMETHAZINE HCL 25 MG/ML VIAL IVP PRN (20:02)
[2017-01-13] MEDS ORDERED: ACETAMINOPHEN 500 MG TABLET PO PRN (20:02)
[2017-01-13] MEDS: SIMVASTATIN 10MG TABLET PO SCH (23:55)
[2017-01-14] MEDS ORDERED: 0.9 % SODIUM CHLORIDE 1000ML 1,000 ML IV PRN (05:48)
--- NOTE | 2017-01-14 07:32 | RADIOLOGY REPORT ---
EXAM: CHEST, TWO VIEWS HISTORY: FEVER AND WEAKNESS. DIZZINESS AND LIGHTHEADEDNESS. TECHNIQUE: AP and lateral semi-upright views of the chest were obtained. Comparison: 10/08/16. FINDINGS: The heart is mildly enlarged, but stable. The mediastinum and pulmonary vasculature appear within normal limits. There is focal air space opacity within the left lower lobe consistent with pneumonia. There is minor atelectasis or infiltrate at the right lung base. The upper lung collier are clear. Degenerative changes are present within the spine and shoulders. IMPRESSION: 1. LEFT LOWER LOBE INFILTRATE CONSISTENT WITH PNEUMONIA. 2. MINOR ATELECTASIS OR INFILTRATE AT THE RIGHT LUNG BASE. JOB NUMBER: [id number] MTDD
[2017-01-14] MEDS ORDERED: CIPROFLOXACIN LACTATE/D5W 400 MG/200 ML BAG IVPB SCH (08:00)
[2017-01-14] MEDS: LEVOFLOXACIN/D5W 750 MG/150 ML BAG IVPB SCH (09:04)
[2017-01-14] MEDS: DIGOXIN 125 MCG TABLET PO SCH (09:48)
[2017-01-14] MEDS: ATENOLOL 50 MG TABLET PO SCH (09:48)
[2017-01-14] MEDS ORDERED: POTASSIUM CHLORIDE 10 MEQ TAB PO SCH (10:00)
[2017-01-14] MEDS ORDERED: FUROSEMIDE 20 MG TABLET PO SCH (10:00)
[2017-01-14] MEDS ORDERED: 0.9 % SODIUM CHLORIDE 1000ML 1,000 ML IV ONE (16:53)
[2017-01-14] MEDS: SIMVASTATIN 10MG TABLET PO SCH (21:27)
[2017-01-15] MEDS: LEVOFLOXACIN/D5W 750 MG/150 ML BAG IVPB SCH (08:08)
[2017-01-15] MEDS ORDERED: ENOXAPARIN 40 MG/0.4 ML SYR SQ SCH (10:00)
[2017-01-15] MEDS: DIGOXIN 125 MCG TABLET PO SCH (10:28)
[2017-01-15] MEDS: ATENOLOL 50 MG TABLET PO SCH (10:28)
[2017-01-15] MEDS: ENOXAPARIN 30 MG/0.3 ML SYR SQ SCH (10:28)
--- NOTE | 2017-01-15 10:50 | History and Physical Report ---
CHIEF COMPLAINT: Nausea, vomiting, and diarrhea. HISTORY OF PRESENT ILLNESS: This 81-year-old female presented to the emergency department with weakness, nausea, vomiting, diarrhea, and fever. Came in, seen by Dr. Mason, admitted to the hospital with a diagnosis of acute pyelonephritis and left lower lobe pneumonia. The patient did not have any coughing or difficulty breathing; however, the chest x-ray showed an infiltrate seen best on the lateral view of the chest x-ray. PAST MEDICAL HISTORY: Hypertension, hypercholesterolemia, colon cancer, also had coronary artery disease in 1997. PAST SURGICAL HISTORY: Resection of the colon for colon cancer more than 5 years ago. MEDICATIONS: 1. Pravastatin 10 mg daily. 2. Potassium chloride 10 mEq daily. 3. Lasix 20 mg daily. 4. Vitamin D 50,000 units weekly. 5. Digoxin 125 mcg daily. 6. Atenolol 50 mg daily. 7. Possibly doxycycline 100 mg q.12 h. ALLERGIES: KEFLEX. PRIMARY DOCTOR: Dr. Caldera FAMILY PSYCHOSOCIAL HISTORY: Unremarkable and unobtainable. Never smoked. No alcohol or drug use. REVIEW OF SYSTEMS: HEENT: No cough, cold, or congestion but she has a fever, nausea, vomiting, and diarrhea. Cardiovascular: History of an [place] in 1997. Has not seen a accident investigator in a while accident investigator . Respiratory: No cough, cold, or congestion. See Chief Complaint though she does have pneumonia by chest x-ray. Gastrointestinal: There is nausea, vomiting, and diarrhea. Genitourinary: Her urine shows bacteria and WBCs consistent with pyelonephritis. No dysuria, hematuria, or frequency or burning on urination. Musculoskeletal: Moving all 4 extremities. No arthritis. Neurological: No CVA, paralysis, or paresthesias. Endocrine: No diabetes or thyroid disease. No lumps in her breasts or abnormal vaginal bleeding. Integument: No rash, ulcerative change in moles, or yellow skin. PHYSICAL EXAMINATION: VITAL SIGNS: Height 5 feet 5 inches, weight 180 pounds, temperature 98.3, pulse 72, blood pressure 94/55, respiratory rate 16, pulse ox 96% on room air. HEENT: Throat is clear. Pupils are equal, round, and reactive to light and accommodation. Extraocular muscles intact. Tympanic membranes are benign and owen. No oral lesions. NECK: Supple. No jugular venous distention or hepatojugular reflux. No carotid bruits. Thyroid is smooth. CARDIOVASCULAR: Regular rate and rhythm without murmurs, clicks, rubs, or gallops. RESPIRATORY: Clear to auscultation and percussion. There are some rales in the posterior bases bilaterally, more so on the left. I heard some on the right too. ABDOMEN: Soft, nontender. No hepatosplenomegaly. No masses, no tenderness. Bowel sounds active. No bruits. EXTREMITIES: No pitting edema. No cyanosis. No clubbing. Full range of motion. Peripheral pulses good. BREASTS/GYNECOLOGICAL/RECTAL. Exams deferred. GENITALIA: Normal female genitalia. NEUROLOGIC: Cranial nerves II-XII intact. No gross defects. Sensation normal. Strength normal. Deep tendon reflexes equal bilaterally. Babinski negative. She is a very poor historian. MENTAL STATUS: Alert and oriented x3. IMPRESSION: 1. Pneumonia, left lower lobe. 2. Acute pyelonephritis. 3. History of hypertension. 4. History of hypercholesterolemia. 5. History of coronary artery disease. PLAN: IV Levaquin 750 once a day. She started out with Cipro in the emergency department but because of the pneumonia and urinary tract infection, I chose to go with Levaquin today. INPATIENT CERTIFICATION: Admit to Inpatient Care. Based on my medical assessment and after consideration of patient risk factors, age, comorbidities, and patient presenting symptoms on Acute, I expect this patient will remain in the hospital greater than or equal to 2 midnights, and the services needed warrant inpatient care because of pneumonia and pyelonephritis, and the patient' s age and comorbidity. ESTIMATED LENGTH OF STAY: 4 days. The patient may reasonably be expected to be discharged or transferred to a hospital within 96 hours after admission to [facility]. I certify that my determination is in accordance with my understanding of Medicare requirements for reasonable and necessary inpatient services. BREE
[2017-01-15] MEDS: SIMVASTATIN 10MG TABLET PO SCH (21:30)
[2017-01-16] MEDS: LEVOFLOXACIN/D5W 750 MG/150 ML BAG IVPB SCH (07:50)
--- NOTE | 2017-01-16 08:17 | Discharge Note ---
VTE H&P Assessment - Risk for VTE Risk for VTE: Yes Risk Level: Moderate Risk Assessment Date: 01/15/17 Risk Assessment Time: 08:00 VTE Orders Placed or Will Be Placed: Yes Discharge Medications - Discharge Medications Prescriptions: Levofloxacin [Levaquin Tab] 500 mg PO DAILY #7 tab Home Medications: Ambulatory Orders Atenolol [Tenormin] 50 mg PO DAILY 10/07/16 [Last Taken 10/06/16] Digoxin [Lanoxin] 125 mcg PO DAILY 10/07/16 [Last Taken 10/06/16] Ergocalciferol (Vitamin D2) [Vitamin D2] 50,000 unit PO WEEKLY 10/07/16 [Last Taken Unknown] Furosemide [Lasix] 20 mg PO DAILY 10/07/16 [Last Taken 10/06/16] Potassium Chloride [K-Tab ER] 10 meq PO DAILY 10/07/16 [Last Taken 10/06/16] Pravastatin Sodium [Pravachol] 10 mg PO DAILY 10/07/16 [Last Taken 10/06/16] Levofloxacin [Levaquin Tab] 500 mg PO DAILY #7 tab 01/16/17 [Last Taken Unknown] Discharge Note - Date Date of Discharge Note: 01/16/17 Condition: (1) Good Additional Instructions: follow up with dr. Caldera in 5-[address] Caldera order a follow up chest xray in 4 weeks to make sure infiltates / pneumonia resolve. Prescriptions: Levofloxacin [Levaquin Tab] 500 mg PO DAILY #7 tab Forms: Patient Portal Access
[2017-01-16] MEDS: ENOXAPARIN 30 MG/0.3 ML SYR SQ SCH (09:44)
[2017-01-16] MEDS: DIGOXIN 125 MCG TABLET PO SCH (09:48)
[2017-01-16] MEDS: ATENOLOL 50 MG TABLET PO SCH (09:48)
--- NOTE | 2017-01-17 14:00 | Discharge Summary ---
DATE OF ADMISSION: 01/13/2017 DATE OF DISCHARGE: 01/16/2017 DISCHARGE DIAGNOSES: 1. Pneumonia, left lower lobe. 2. Possible right lower lobe pneumonia. 3. Initially she was thought to have a urinary tract infection, but that turned out to be mixed alirio in the urine culture. 4. Status post hypertension. 5. Status post hypercholesterolemia. 6. Status post coronary artery disease. ATTENDING PHYSICIAN: Damian Rothman DO REASON FOR HOSPITALIZATION: Nausea, vomiting, and diarrhea. This 81-year-old female presented to the Emergency Department with weakness, nausea, vomiting, diarrhea, and a fever. She was seen by Dr. Mason and admitted to the hospital with the diagnosis of acute pyelonephritis and left lower lobe pneumonia. The patient did not have any coughing or difficulty breathing; however, chest x-ray showed an infiltrate seen best on the lateral view of the chest x-ray, and some infiltrate in the right lower lobe too. See x-ray report. SIGNIFICANT FINDINGS FROM EXAMINATION: Chest x-ray showed left lower lobe infiltrate consistent with pneumonia and minor atelectasis or infiltrate at the right lung base. Initially, the UA showed 36-50 wbc's, 0-2 rbc's, large leukocyte esterase with 1+ bacteria, but 3-6 epithelial cells. She has positive nitrites and cloudy urine. The white cell count was 16.200. Hemoglobin was 12.3. BUN was 21. Creatinine was 1.1. Her urine culture revealed only mixed alirio, which indicates not a clean-catch urine. THERAPY PROVIDED: Initially, she was started on Cipro 400 mg IV every 12 hours, switched over the next morning to Levaquin because of her pneumonia 750 IV daily. She gradually improved and is feeling much better. Her breathing is better. She is able to ambulate around the room without difficulties. She is eating and drinking and feeling much better. HOSPITAL COURSE: She gradually improved. CONDITION AT DISCHARGE: Much improved. DISCHARGE INSTRUCTIONS: Follow up with Dr. Caldera in 5-10 days. Discharge medications/antibiotics, Levaquin 500 mg daily for 7 days. She will need a followup chest x-ray in 3-4 weeks to make sure that the infiltrates have totally resolved. Activity as tolerated. Will continue her home mediations of atenolol 50 mg daily, potassium chloride 10 mEq daily. Lasix, we will restart that back up at 20 mg daily. Vitamin D 50,000 units weekly. Digoxin 125 mcg daily. Pravachol 10 mg daily. CC: MD COLTEN DollD
== END 2017-01-16 11:09 | disposition home or self-care (01) | DRG 195 ==
LOC: ER 16:55 → MEDSURG 19:43
PROVIDERS: ADMIT Emergency Medicine; ATTEND Emergency Medicine
DX: J18.9 Pneumonia, unspecified organism (principal); I10 Essential (primary) hypertension; E78.00 Pure hypercholesterolemia, unspecified; I25.10 Atherosclerotic heart disease of native coronary artery without angina pectoris; Z91.89 Other specified personal risk factors, not elsewhere classified
CPT/HCPCS: 71020; 80053; 80162; 81001; 83690; 85025; 93041; 96361; 96365; 96375; 99223; 99285; J1650; J1956; J2550; J7030

== ENCOUNTER 2019-05-11 11:51 | Emergency (ER) | payer MEDICARE, BC ==
--- NOTE | 2019-05-11 12:12 | Emergency Department Record ---
History of Present Illness - General Chief complaint: Weakness Stated complaint: WEAKNESS Time Seen by Provider: 05/11/19 12:07 Source: Patient Mode of Arrival: Ambulatory Limitations: No limitations - History of Present Illness Initial comments: The patient is here due to feeling weak today. She mainly is getting the symptoms when she stands up and has the feeling of lightheadedness. The onset was with waking up today. The patient denies any CP, SOB, CHAVA, sweating or nausea. She is on multiple medicines but is not sure when she last took them. There has been no hx of any recent illnesses, injuries, fever, cough, AP or dysuria. MD Complaint: Generalized weakness Onset/Timin -: Days(s) Location: Generalized Improves with: None Worsens with: Movement Associated Symptoms: Denies other symptoms - Merced Coma Scale Eye Response: (4) Open spontaneously Motor Response: (6) Obeys commands Verbal Response: (5) Oriented Jolene Total: 15 - Related Data Previous Rx's Medication Instructions Recorded Nitrofurantoin Box Elder [Macrobid] 100 mg PO BID #10 capsule 05/11/19 Allergies Allergy/AdvReac Type Severity Reaction Status Date / Time cephalexin monohydrate Allergy HIVES Verified 05/11/19 12:01 [From [employer]] Travel Screening - Travel/Exposure Within Last 30 Days Have you traveled within the last 30 days?: No Review of Systems Constitutional: Denies: Chills, Fever Eyes: Denies: Eye discharge ENT: Denies: Throat pain Respiratory: Denies: Cough Cardiovascular: Denies: Arrhythmia, Chest pain Endocrine: Reports: Fatigue Gastrointestinal: Denies: Nausea Genitourinary: Denies: Dysuria Musculoskeletal: Denies: Arthralgia Skin: Denies: Bruising Past Medical History - SOCIAL HISTORY Smoking Status: Never smoker Alcohol Use: None Drug Use: None - RESPIRATORY Hx Respiratory Disorders: No Comment:: PATIENT IS POOR HISTORIAN - CARDIOVASCULAR Hx Cardio Disorders: Yes Hx Irregular Heartbeat: Yes (palpitations) - NEURO Hx Neuro Disorders: No Comment:: PATIENT IS POOR HISTORIAN - GI Hx GI Disorders: No Comment:: PATIENT IS POOR HISTORIAN - Hx Genitourinary Disorders: No Comment:: PATIENT IS POOR HISTORIAN - ENDOCRINE Hx Endocrine Disorders: No Comment:: PATIENT IS POOR HISTORIAN - MUSCULOSKELETAL Hx Musculoskeletal Disorders: No Comment:: PATIENT IS POOR HISTORIAN - PSYCH Hx Psych Problems: No Comment:: PATIENT IS POOR HISTORIAN - HEMATOLOGY/ONCOLOGY Hx Hematology/Oncology Disorders: Yes Hx Cancer: Yes (colon) Family Medical History Any Significant Family History?: No Physical Exam - General General Appearance: Alert, Oriented x3, Cooperative, No acute distress - Head Head exam: Atraumatic, Normocephalic, Normal inspection - Eye Eye exam: Normal appearance, PERRL, EOMI - ENT Throat exam: Normal inspection. negative: Tonsillar erythema, Tonsillar exudate - Neck Neck exam: Normal inspection, Full ROM. negative: Tenderness - Respiratory Respiratory exam: Normal lung sounds bilaterally. negative: Respiratory distress - Cardiovascular Cardiovascular Exam: Regular rate, Normal rhythm, Normal heart sounds - GI/Abdominal GI/Abdominal exam: Soft, Normal bowel sounds. negative: Tenderness - Extremities Extremities exam: Normal inspection, Full ROM, Normal capillary refill. negative: Tenderness - Back Back exam: Reports: Normal inspection - Neurological Neurological exam: Alert, Normal gait, Oriented X3. negative: Abnormal gait, Altered, Motor sensory deficit - Psychiatric Psychiatric exam: negative: Anxious, Depressed Course Vital Signs 05/11/19 11:58 Temperature 97.8 F Pulse Rate 112 H Respiratory 18 Rate Blood Pressure 160/76 Pulse Ox 99 - Reevaluation(s) Reevaluation #1: The patient is doing a lot better at this time. She is up walking with no weakness or lightheadedness. She is feeling back to normal. 2nd EKG: NSR at 83, neg for ischemic changes. Normal EKG for patient. 05/11/19 13:33 Reevaluation #2: The patient is doing very well at this time. She remains asymptomatic since we did senior policy advisor the patient her normal dose of Betablockers. She has been up walking without difficulty. I did discuss the workup with the patient and daughter and did discuss the neg lab work and xrays. She is to see her PCP later this week for recheck and to return to the ER for any worsening symptoms. 05/11/19 15:15 Medical Decision Making - Data Complexity MDM Data: Labs Ordered and/or Reviewed, X-Ray Ordered and/or Reviewed, EKG Ordered and/or Reviewed - Lab Data Result diagrams: 05/11/19 12:05 05/11/19 12:05 - EKG Data -: EKG Interpreted by Me EKG: No Acute Changes, Unchanged From Previous - Radiology Data Radiology results: Report reviewed (CXR: Neg per Rad. Head CT: Neg for acute changes.) Disposition Disposition: Discharge Clinical Impression: Generalized weakness Disposition: Home, Self-Care Condition: (2) Stable Instructions: Weakness (ED) Additional Instructions: Please continue your regular medicines and please take the Macrobid as directed. Please see your primary doctor later this week for recheck and return to the ER for any worsening symptoms. Prescriptions: Nitrofurantoin Box Elder [Macrobid] 100 mg PO BID #10 capsule Forms: Patient Portal Access Time of Disposition: 15:14 Quality - Quality Measures Quality Measures: N/A - Blood Pressure Screening View Details: Yes Does Patient Have Any of the Following: Active Dx of HTN Blood Pressure Classification: Hypertensive Reading Systolic Measurement: 160 Diastolic Measurement: 76 Screening for High Blood Pressure: Patient Exclusion, Hx of HTN [[id number]]
[2019-05-11] MEDS ORDERED: ATENOLOL 50 MG TABLET PO ONE (12:16)
[2019-05-11] MEDS ORDERED: 0.9 % SODIUM CHLORIDE 1,000 ML BAG IV ONE (12:23)
[2019-05-11 12:29] LABS: ABSOLUTE NEUTROPHIL COUNT 4.63; BASO % 0.2 % (0-6); EOS % 1.8 % (0-6); GRAN % 70.8 % (47-80); HEMATOCRIT 37.6 % (35.0-47.0); HEMOGLOBIN 11.8 gm/dl (11.6-16.0); MEAN CELL VOLUME 104.7 fl (81-97); MEAN CORPUSCULAR HGB CONC 31.4 g/dl (32-36); MEAN PLATELET VOLUME 9.2 fl (7.4-10.4); MONO % 10.2 % (0-9); PLATELET COUNT 285 K/uL (130-400); RED BLOOD COUNT 3.59 M/uL (3.80-5.40); RED CELL DISTRIBUTION WIDTH 15.5 % (11.5-14.5); WHITE BLOOD COUNT W/O DIFF 6.5 K/uL (4.2-12.2)
[2019-05-11 12:32] LABS: MEAN CORPUSCULAR HEMOGLOBIN 32.8 pg (27-33)
[2019-05-11 12:40] LABS: BLOOD UREA NITROGEN 18 mg/dL (8-23); CREATININE 1.2 mg/dL (0.5-0.9); EST GLOMERULAR FILTRATION RATE 46 mL/min; TOTAL PROTEIN 7.5 g/dL (6.6-8.7)
[2019-05-11 12:42] LABS: GLUCOSE,RANDOM 130 mg/dL (74-109)
[2019-05-11 12:43] LABS: PARTIAL THROMBOPLASTIN TIME 29.2 SECONDS (24.5-39.1); PROTHROMBIN TIME (PATIENT) 10.3 SECONDS (9.5-12.1)
[2019-05-11 12:45] LABS: ALB/GLOB RATIO 1.1 (1.1-1.8); ALBUMIN 3.9 g/dL (4.0-5.0); ALKALINE PHOSPHATASE 113 U/L (35-104); ALT/SGPT 11 U/L (<33); AST/SGOT 23 U/L (10.0-35.0)
[2019-05-11 12:46] LABS: DIGOXIN < 0.3 ng/mL (0.8-2.0)
[2019-05-11 12:55] LABS: THYROID STIMULATING HORMONE 4.18 uIU/mL (0.270-4.20)
--- NOTE | 2019-05-11 13:36 | RADIOLOGY REPORT ---
EXAMINATION: Two View Chest Radiographs EXAM DATE: 05/11/2019 1:08 PM TECHNIQUE: Frontal and lateral views INDICATION: weakness COMPARISON: Chest radiograph 01/13/2017 ENCOUNTER: Not applicable FINDINGS: The heart and mediastinal contour are stable. The lung is hyperinflated. Chronic perihilar interstiti al markings are unchanged. There is no pulmonary consolidation. No pleural effusion or pneumothorax i s seen. The osseous structures and overlying soft tissue markings are within normal limits. IMPRESSION: No acute cardiopulmonary disease is present. Dictated by: Julio Cesar iDaz DO on 05/11/2019 1:33 PM. .
[2019-05-11 13:49] LABS: URINE APPEARANCE CLOUDY; URINE BILIRUBIN NEGATIVE (NEGATIVE); URINE BLOOD SMALL (NEGATIVE); URINE COLOR YELLOW; URINE GLUCOSE (UA) NEGATIVE (NEGATIVE); URINE KETONE NEGATIVE (NEGATIVE); URINE LEUKOCYTE ESTERASE LARGE (NEGATIVE); URINE NITRITE NEGATIVE (NEGATIVE); URINE PROTEIN TRACE (NEGATIVE); URINE UROBILINOGEN 0.2 E.U./dL (0.20 - 1.00)
[2019-05-11 14:00] LABS: URINE BACTERIA 2+; URINE EPITHELIAL CELLS 0 - 2 (FEW); URINE RBC 0 - 2 (NONE SEEN)
--- NOTE | 2019-05-11 14:16 | CT SCAN REPORT ---
EXAMINATION: CT Head without IV Contrast EXAM DATE: 05/11/2019 1:59 PM TECHNIQUE: Standard protocol CT images of the head were obtained without intravenous contrast. Roche l and sagittal reconstructed images were created. INDICATION: weakness COMPARISON: None HAND DOMINANCE: Unknown. ENCOUNTER: Not applicable FINDINGS: 1. There is no intracranial mass, midline shift, extraaxial fluid collection or hemorrhage. 2. Mild global cortical volume loss with ex vacuo dilatation of the ventricular system. 3. Chronic small vessel ischemic changes in a periventricular and subcortical distribution. Intracra nial vascular calcifications are present. 4. There is no fracture. 5. The visualized aspects of the orbits, paranasal sinuses, and mastoid air cells are normal. IMPRESSION: No acute intracranial abnormality. Chronic changes as above. Dictated by: Mario Lebron MD on 05/11/2019 2:13 PM. .
[2019-05-11] MEDS ORDERED: NITROFURANTOIN MONO 100 MG CAPSULE PO ONE (14:21)
== END 2019-05-11 15:31 | disposition home or self-care (01) ==
LOC: ER 11:51
DX: R53.1 Weakness (principal); R42 Dizziness and giddiness; I10 Essential (primary) hypertension
CPT/HCPCS: 70450; 71046; 80053; 80162; 81001; 84443; 84484; 85025; 85610; 85730; 93005; 93010; 96360; 96361; 99284; J7030